=== PATIENT | male | born 1990 | race Native Hawaiian/Other Pacific Islander ===

== ENCOUNTER 2023-07-20 10:50 | Emergency (ER) | payer BC ==
[~2023-07-20] VITALS: Ht 172.7 cm; Wt 77.1 kg
[~2023-07-20 10:50] MED LIST: HYDR10TA47A PO
[2023-07-20 10:55] VITALS: BP 129/77; TEMP 97.3
== END 2023-07-20 11:16 | disposition home or self-care (01) ==
LOC: ED 10:50
DX: Z48.02 Encounter for removal of sutures (principal)